=== PATIENT | female | born 1985 | race Caucasian/White ===

== ENCOUNTER 2016-08-10 06:49 | Emergency (ER) | payer OTHER ==
--- NOTE | ~2016-08-10 | CR72 ---
[facility] A Service of [facility] RADIOLOGY TEXT RESULTS PATIENT: ANIVAL US LOCATION: SED : 83 UNIT #: [id number] AGE: [address]: Nuno Tavarez MD SEX: F ORDER DR: [id number] [place] [id number] E MR#: [id number] Acc #: [id number] NAME: ANIVAL US : 1985 SEX: F STUDY DATE/TIME: 08/10/2016 6:31 UNIT: SED ROOM: STUDY DESCRIPTION: CR Chest Single View Portable Attending Physician: Nuno Tavarez M.D. Ordering Physician: Demarcus Cline M.D. Primary Care Physician: Masoud Clark M.D. MEDICAL IMAGING REPORT This report is preliminary unless electronic signature is present. EXAM Frontal chest 08/10/2016 INDICATIONS 31-year-old female with acute chest pain tonight. History of hypertension, asthma, heart murmur. Anxiety and depression disorder. Valve surgery 2 weeks ago involving the aorta. TECHNIQUE Frontal chest compared to 07/06/2014 FINDINGS Exam degraded by body habitus, motion and exposure factors. The heart is enlarged. Postop changes of median sternotomy are present. Interstitial prominence throughout both lungs most likely reflects vascular congestion and interstitial edema. Lung base is not well visualized or assessed. There is asymmetric edema, atelectasis or infiltrate in the upper lung zone on the right. No pneumothorax. IMPRESSION 1. Postop changes of median sternotomy with cardiomegaly and vascular congestion with interstitial edema. 2. There is asymmetric edema, atelectasis or infiltrate in the upper lung zone on the right. No pneumothorax. Follow up to clearing after appropriate therapy is recommended. Dictated by... Dylan Fernandez M.D. THIS IS AN ELECTRONICALLY VERIFIED REPORT Dylan Fernandez M.D. at 08/10/2016 2:02 PM LISSETTE/av [facility] A Service of [facility] RADIOLOGY TEXT RESULTS PATIENT: ANIVAL US [place] [facility] [place] [birth year] UNIT #: [id number] AGE: [address]: Nuno Tavarez MD SEX: F ORDER DR: TD: 08/10/2016 13:43 JOB #: [id number] MEDICAL IMAGING REPORT
--- NOTE | ~2016-08-10 | EKG ---
PATIENT: ANIVAL US UNIT #: [id number] Ventricular Rate: 87 BPM Atrial Rate: 87 BPM P-R Interval: 138 ms QRS Duration: 132 ms Q-T Interval: 398 ms QTC Calculation(Bezet): 478 ms P [place]: 43 degrees Calculated R [place]: 87 degrees Calculated T [place]: -76 degrees Diagnosis Line: Normal sinus rhythm Diagnosis Line: Left bundle branch block Diagnosis Line: Abnormal ECG Diagnosis Line: When compared with ECG of 21-APR-2014 01:41, Diagnosis Line: Significant changes have occurred Diagnosis Line: Confirmed by JOSH QUINN MD ([id number]) on Diagnosis Line: 09/18/2016 7:03:34 AM INTERPRETING MD: ABBI
[2016-08-10 06:45] LABS: POC - CKMB 17.7 ng/mL (0.0-7.9); POC - MYOGLOBIN >500.0 ng/mL (0.0-169.0); POC - TROPONIN <0.05 ng/mL (<=0.05)
[~2016-08-10 06:49] MED LIST: AFRIN15 M1 NS; ALBUTEROL17 GM INH; ASPIRIN81 MG; BACTRIM DS TABL1 TA1 PO; DICLOFENAC PO; FLEXERIL10 MG PO; HUMULIN R100 U/ML SUBQ; HYCODAN60 ML 5MG/ DOB; LANTUS100 U/ML INJ; LANTUS100 U/ML SQ; LOPRESSOR; MELLATONIN; MEVACOR; NAMENDA10 MG PO; NAPROSYN500 MG PO; NOVOLOG100 U/ML; NOVOLOG100 U/ML SUBQ; PHENERGAN25 MG PO; PREDNISONE PO; PROMETHAZINE-D240 ML PO; PROVENTIL17 GM IH; ROBAXIN 750750 M1 PO; ROBAXIN500 MG PO; VOLTAREN50 MG PO; ZITHROMAX PO; ZOFRAN ODT4 MG PO; ZOLOFT; ZOLOFT PO
[2016-08-10 06:59] LABS: BASOPHIL# 0.1 X10e3 (0-0.3); BASOPHIL% 0.7 % (0-2.5); EOSINOPHIL# 0.2 X10e3 (0-0.7); EOSINOPHIL% 1.2 % (0.0-7.0); HEMATOCRIT 32.7 % (35.0-45.0); HEMOGLOBIN 10.5 gm/dL (12.0-16.0); LYMPHOCYTE# 2.6 X10e3 (1.0-3.5); LYMPHOCYTE% 20.2 % (17.0-45.0); MEAN CELL VOLUME 86.5 FL (83-96); MEAN CORPUSCULAR HEMOGLOBIN 27.7 PG (28-34); MEAN PLATELET VOLUME 6.7 FL (6.5-11.5); MONOCYTE# 0.7 X10e3 (0-1.0); MONOCYTE% 5.8 % (3.0-12.0); NEUTROPHIL# 9.3 X10e3 (1.5-7.1); NEUTROPHIL% 72.1 % (40-75); PLATELET COUNT 765 X10e3 (140-420); RED BLOOD COUNT 3.78 X10e (3.90-5.30); RED CELL DISTRIBUTION WIDTH 15.1 % (11.0-15.5); WHITE BLOOD COUNT 12.9 X10e3 (4.0-10.5)
[2016-08-10 07:01] LABS: DIFF IND NO
[2016-08-10 07:05] LABS: INR 1.2; PROTHROMBIN TIME (PATIENT) 13.8 SECONDS (9.5-12.4)
[2016-08-10 07:13] LABS: PARTIAL THROMBOPLASTIN TIME 32.5 SECONDS (25.6-38.1)
[2016-08-10 07:14] LABS: ALBUMIN SERUM 2.6 g/dL (3.5-5.0); ALKALINE PHOSPHATASE 621 U/L (32-92); ALT (SGPT) 77 U/L (10-40); AST (SGOT) 117 U/L (10-42); BILIRUBIN, DIRECT 0.1 mg/dL (0.0-0.2); BILIRUBIN,INDIRECT 0.4 mg/dL (0.0-0.9); BILIRUBIN,TOTAL 0.5 mg/dL (0.2-2.0); BLOOD UREA NITROGEN 16 mg/dL (9-23); CALCIUM SERUM 8.3 mg/dL (8.4-10.2); CARBON DIOXIDE 25 mmol/L (22-31); CHLORIDE 102 mmol/L (100-111); CREATININE SERUM 0.4 mg/dL (0.6-1.4); GLOM FILT RATE Estimated ABOVE60 mL/min (>60); GLUCOSE FASTING 51 mg/dL (70-110); POTASSIUM 3.3 mmol/L (3.5-5.1); PROTEIN TOTAL SERUM 6.9 g/dL (6.0-8.3); SODIUM 138 mmol/L (135-145)
[2016-08-10 09:04] LABS: POC - CKMB 9.2 ng/mL (0.0-7.9); POC - MYOGLOBIN >500.0 ng/mL (0.0-169.0); POC - TROPONIN <0.05 ng/mL (<=0.05)
[2016-08-14] MEDS ORDERED: NAPROXEN (16:53)
[2016-08-14] MEDS ORDERED: FLEXERIL10 MG (16:53)
[2016-08-14] MEDS ORDERED: ANTIBIOTIC (16:55)
== END 2016-08-10 15:34 ==
LOC: SED 06:49
PROVIDERS: Emergency Medicine
DX: J18.9 Pneumonia, unspecified organism (principal); I11.0 Hypertensive heart disease with heart failure; I50.9 Heart failure, unspecified; K21.9 Gastro-esophageal reflux disease without esophagitis; E11.9 Type 2 diabetes mellitus without complications; Z87.891 Personal history of nicotine dependence; M51.36 Other intervertebral disc degeneration, lumbar region; Z98.890 Other specified postprocedural states; Z88.8 Allergy status to other drugs, medicaments and biological substances; Z91.010 Allergy to peanuts; Z91.013 Allergy to seafood; Z79.899 Other long term (current) drug therapy; Z79.4 Long term (current) use of insulin
CPT/HCPCS: 36415; 71010; 80048; 80076; 82553; 82947; 83874; 83880; 84484; 85025; 85610; 85730; 93005; 96374; 96375; 99291; J1940; J2060; J2270; J2405; J3370

== ENCOUNTER 2016-08-14 17:34 | Emergency (ER) | payer OTHER ==
--- NOTE | ~2016-08-14 | CT98 ---
[facility] A Service [facility] RADIOLOGY TEXT RESULTS PATIENT: ANIVAL US LOCATION: SED : 84 UNIT #: [id number] AGE: [address]: Nuno Tavarez MD SEX: F ORDER DR: [id number] [place] [id number] E MR#: [id number] Acc #: [id number] NAME: ANIVAL US : 1985 SEX: F STUDY DATE/TIME: 08/14/2016 18:06 UNIT: SED ROOM: STUDY DESCRIPTION: CT Lumbar Spine Wo Cont Attending Physician: Nuno Tavarez M.D. Ordering Physician: Nuno Tavarez M.D. Primary Care Physician: Masoud Clark M.D. MEDICAL IMAGING REPORT This report is preliminary unless electronic signature is present. EXAM CT of the lumbar spine HISTORY Low back pain for 2 weeks after heart surgery. Hematuria. TECHNIQUE Transaxial imaging of the lumbar spine was performed with multiplanar reconstructions. This CT examination was performed with one or more of the following radiation dose reduction techniques: automatic exposure control, adjustment of mA and/or kV according to patient size, and iterative reconstruction. FINDINGS Lumbar alignment is normal. Disc space and vertebral body height is maintained. No fractures, bone destruction or periosteal reaction. There is no evidence of disc bulge or herniation. CONCLUSION Normal CT of the lumbar spine. Dictated by... Gareth Bar M.D. THIS IS AN ELECTRONICALLY VERIFIED REPORT Gareth Bar M.D. at 08/18/2016 5:10 PM GWEN/hattie TD: 08/15/2016 08:06 JOB #: [id number] [facility] A Service [facility] RADIOLOGY TEXT RESULTS PATIENT: ANIVAL US LOCATION: SED : 83 UNIT #: [id number] AGE: [address]: Nuno Tavarez MD SEX: F ORDER DR: MEDICAL IMAGING REPORT
[~2016-08-14 17:34] MED LIST changes: +ANTIBIOTIC; +FLEXERIL10 MG; +NAPROXEN
[2016-08-14 17:41] LABS: URINE APPEARANCE CLEAR; URINE BILIRUBIN NEG (NEG); URINE BLOOD 3+ (NEG); URINE COLOR YELLOW; URINE GLUCOSE 100 MG/DL (NORM); URINE KETONE NEG (NEG); URINE LEUKOCYTE ESTERASE TRACE (NEG); URINE NITRATE NEG (NEG); URINE PH 7.5 (5-8); URINE PROTEIN NEG (NEG); URINE SOURCE CLEAN CATCH; URINE SPECIFIC GRAVITY 1.015 (1.003-1.035); URINE UROBILINOGEN 0.2 MG/DL (NORM)
[2016-08-14 17:43] LABS: MICRO INDICATED? YES
[2016-08-14 17:51] LABS: CULTURE INDICATED? NO; URINE BACTERIA NEG (NEG); URINE SQUAMOUS EPITHELIAL CELL MODERATE /[HPF]; URINE WBC 0-2 /[HPF] (0-5)
== END 2016-08-14 18:57 | disposition home or self-care (01) ==
LOC: SED 17:34
PROVIDERS: Emergency Medicine
DX: M51.36 Other intervertebral disc degeneration, lumbar region (principal); N39.0 Urinary tract infection, site not specified; M19.90 Unspecified osteoarthritis, unspecified site; I51.9 Heart disease, unspecified; E10.9 Type 1 diabetes mellitus without complications; I10 Essential (primary) hypertension; E66.01 Morbid (severe) obesity due to excess calories; Z68.35 Body mass index [BMI] 35.0-35.9, adult
CPT/HCPCS: 72131; 81003; 84703; 96372; 99284; J1170; J2550